=== PATIENT | female | born 1980 | race Caucasian/White ===

== ENCOUNTER 2017-10-20 10:40 | Emergency (ER) | payer OTHER ==
[2017-10-20] MEDS ORDERED: SODIUM CHLORIDE 0.9% 1,000 ML IV STA ×2 (11:10)
[2017-10-20] MEDS ORDERED: LORazepam 2 MG/ML INJ IV STA (11:10)
[2017-10-20] MEDS ORDERED: diphenhydrAMINE 50 MG/ML 1 ML VIAL IVP STA (11:10)
[2017-10-20] MEDS ORDERED: LEVOFLOXACIN 500MG-D5W PMX 500 MG in DEXTROSE/WATER 1 100ML.BAG IVPB STA (11:11)
[2017-10-20] MEDS ORDERED: AMPICILLIN-SULBACTAM 3 GM in SODIUM CHLORIDE 0.9% 100 ML IVPB STA (11:12)
[2017-10-20 12:12] LABS: Basophils % (A) 0 %; Eosinophils % (A) 1 %; HCT 35.4 % (34.0-46.0); HGB 11.9 gm/dL (11.4-16.0); Lymphocytes # (A) 0.7 k/uL (1.0-4.8); Lymphocytes % (A) 14 %; MCH 31.6 pg (25.0-35.0); MCHC 33.6 g/dL (31.0-37.0); MCV 94.2 fL (80.0-100.0); Monocytes # (A) 0.3 k/uL (0-1.0); Monocytes % (A) 5 %; Neutrophils # (A) 4.1 k/uL (1.3-7.7); Neutrophils % (A) 79 %; Platelet Count 186 k/uL (150-450); RBC 3.76 m/uL (3.80-5.40); RDW 13.5 % (11.5-15.5); WBC 5.2 k/uL (3.8-10.6)
[2017-10-20 12:17] LABS: Appearance,Urine Clear (Clear); Bacteria,Urine Rare /hpf; Bilirubin,Urine Negative (Negative); Blood,Urine Trace (Negative); Color,Urine Yellow; Glucose,Urine (UA) Negative (Negative); Ketones,Urine Trace (Negative); Leukocyte Esterase,Urine Small (Negative); Mucus,Urine Occasional /hpf; Nitrite,Urine Negative (Negative); PH, Urine 5.5 (5.0-8.0); Protein,Urine Trace (Negative); RBC,Urine 4 /hpf (0-5); Specific Gravity,Urine 1.023 (1.001-1.035); Squamous Epithelial Cell,Urine 3 /hpf (0-4); WBC,Urine 28 /hpf (0-5)
[2017-10-20 12:26] LABS: ALT 53 U/L (9-52); AST 50 U/L (14-36); Albumin 3.8 g/dL (3.5-5.0); Alkaline Phosphatase 54 U/L (38-126); Amylase <30 U/L (30-110); Anion Gap 12 mmol/L; Blood Urea Nitrogen 13 mg/dL (7-17); Calcium 8.8 mg/dL (8.4-10.2); Carbon Dioxide 26 mmol/L (22-30); Chloride 101 mmol/L (98-107); Glucose 93 mg/dL (74-99); Lipase 51 U/L (23-300); Magnesium 1.8 mg/dL (1.6-2.3); Potassium 3.7 mmol/L (3.5-5.1); Sodium 139 mmol/L (137-145); Total Bilirubin 0.7 mg/dL (0.2-1.3); Total Protein 6.9 g/dL (6.3-8.2)
--- NOTE | 2017-10-20 12:38 | ED ---
General Adult HPI - General Chief complaint: Recheck/Abnormal Lab/Rx Stated complaint: ABSCESSES Time Seen by Provider: 10/20/17 10:51 Source: patient, RN notes reviewed, old records reviewed Mode of arrival: ambulatory Limitations: no limitations - History of Present Illness Initial comments: This is a 37-year-old female to the ER for evaluation of multiple complaints today. Patient has history of drug abuse, history of recent relapse, patient does admit to past history of drug abuse, patient states she does have active hepatitis C. She states she is giving different abscesses and wounds on her face. She also states that she is very depressed that she recently lost her job secondary to physical appearance. Patient denies current drug or alcohol use - Related Data Previous Rx's Medication Instructions Recorded Sulfamethox-Tmp 800-160Mg [Bactrim 1 tab PO Q12HR #20 tab 10/20/17 DS 800-160 mg] Allergies Allergy/AdvReac Type Severity Reaction Status Date / Time No Known Allergies Allergy Verified 10/20/17 11:17 Review of Systems ROS Statement: Those systems with pertinent positive or pertinent negative responses have been documented in the HPI. ROS Other: All systems not noted in ROS Statement are negative. Past Medical History Past Medical History: Seizure Disorder Additional Past Medical History / Comment(s): Chronic Hepatitis C. Motion Sickness. Multiple Abscess with MRSA Rt Arm, Rt foot Left hand between thumb and first finger History of Any Multi-Drug Resistant Organisms: MRSA Date of last positivie culture/infection: Last MRSA Culture 01/19/14 MDRO Source:: 01/19/14 Right forearm, Scalp and Left hand Past Surgical History: Cholecystectomy Additional Past Surgical History / Comment(s): I & D of Lt armpit abscess 2011 Past Anesthesia/Blood Transfusion Reactions: Motion Sickness Past Psychological History: Anxiety, Bipolar, Depression Smoking Status: Current every day smoker Past Alcohol Use History: None Reported Past Drug Use History: Heroin, IV Drug Use - Past Family History Mother Additional Family Medical History / Comment(s): HIV General Exam Limitations: no limitations General appearance: alert, in no apparent distress Head exam: Present: atraumatic, normocephalic, normal inspection Eye exam: Present: normal appearance, PERRL, EOMI. Absent: scleral icterus, conjunctival injection, periorbital swelling ENT exam: Present: normal exam, mucous membranes moist Neck exam: Present: normal inspection. Absent: tenderness, meningismus, lymphadenopathy Respiratory exam: Present: normal lung sounds bilaterally. Absent: respiratory distress, wheezes, rales, rhonchi, stridor Cardiovascular Exam: Present: regular rate, normal rhythm, normal heart sounds. Absent: systolic murmur, diastolic murmur, rubs, gallop, clicks GI/Abdominal exam: Present: soft, normal bowel sounds. Absent: distended, tenderness, guarding, rebound, rigid Extremities exam: Present: normal inspection, full ROM, normal capillary refill. Absent: tenderness, pedal edema, joint swelling, calf tenderness Back exam: Present: normal inspection Neurological exam: Present: alert, oriented X3, CN II-XII intact Psychiatric exam: Present: normal affect, normal mood Skin exam: Present: warm, dry, intact, normal color. Absent: rash Course Vital Signs 10/20/17 10/20/17 10:43 13:07 Temperature 100.0 F H 98.8 F Pulse Rate 76 Respiratory 17 Rate Blood Pressure 117/77 O2 Sat by Pulse 100 Oximetry - Reevaluation(s) Reevaluation #1: 10/20/17 14:09 Patient is May medically clear for psychiatric evaluation regarding history of abuse, drug abuse, current depression and anxiety secondary to loss of job Reevaluation #2: 10/20/17 15:51 Patient was made medically clear for psychiatric evaluation, patient was seen and evaluated with history Medical Decision Making - Medical Decision Making 37 female ER for evaluation of abscesses, skin infection, hepatitis, patient urged to follow up for evaluation regarding her hepatitis. Patient was evaluated by psychiatry here in the ER, is okay for discharge home per psych, not homicidal or suicidal. Patient positive for multiple drugs in her system at this time. We will treat infections with antibiotics and patient can be discharged home - Lab Data Result diagrams: 10/20/17 12:00 10/20/17 12:00 Lab Results 10/20/17 10/20/17 10/20/17 Range/Units 12:00 12:00 12:00 WBC (3.8-10.6) k/uL RBC (3.80-5.40) m/uL Hgb (11.4-16.0) gm/dL Hct (34.0-46.0) % MCV (80.0-100.0) fL MCH (25.0-35.0) pg MCHC (31.0-37.0) g/dL RDW (11.5-15.5) % Plt Count (150-450) k/uL Neutrophils % % Lymphocytes % % Monocytes % % Eosinophils % % Basophils % % Neutrophils # (1.3-7.7) k/uL Lymphocytes # (1.0-4.8) k/uL Monocytes # (0-1.0) k/uL Eosinophils # (0-0.7) k/uL Basophils # (0-0.2) k/uL Sodium 139 (137-145) mmol/L Potassium 3.7 (3.5-5.1) mmol/L Chloride 101 (98-107) mmol/L Carbon Dioxide 26 (22-30) mmol/L Anion Gap 12 mmol/L BUN 13 (7-17) mg/dL Creatinine 0.83 (0.52-1.04) mg/dL Est GFR (MDRD) Af Amer >60 (>60 ml/min/1.73 sqM) Est GFR (MDRD) Non-Af >60 (>60 ml/min/1.73 sqM) Glucose 93 (74-99) mg/dL Calcium 8.8 (8.4-10.2) mg/dL Magnesium 1.8 (1.6-2.3) mg/dL Total Bilirubin 0.7 (0.2-1.3) mg/dL AST 50 H (14-36) U/L ALT 53 H (9-52) U/L Alkaline Phosphatase 54 (38-126) U/L Ammonia <9 (<30) umol/L Total Creatine Kinase 769 H (30-135) U/L CK-MB (CK-2) 2.3 (0.0-2.4) ng/mL CK-MB (CK-2) Rel Index 0.3 Total Protein 6.9 (6.3-8.2) g/dL Albumin 3.8 (3.5-5.0) g/dL Amylase <30 L (30-110) U/L Lipase 51 (23-300) U/L Urine Color Urine Appearance (Clear) Urine pH (5.0-8.0) Ur Specific [place] (1.001-1.035) Urine Protein (Negative) Urine Glucose (UA) (Negative) Urine Ketones (Negative) Urine Blood (Negative) Urine Nitrite (Negative) Urine Bilirubin (Negative) Urine Urobilinogen (<2.0) mg/dL Ur Leukocyte Esterase (Negative) Urine RBC (0-5) /hpf Urine WBC (0-5) /hpf Ur Squamous Epith Cells (0-4) /hpf Urine Bacteria (None) /hpf Urine Mucus (None) /hpf Urine HCG, Qual (Not Detectd) Urine Opiates Screen (NotDetected) Ur Oxycodone Screen (NotDetected) Urine Methadone Screen (NotDetected) Ur Propoxyphene Screen (NotDetected) Ur Barbiturates Screen (NotDetected) U Tricyclic Antidepress (NotDetected) Ur Phencyclidine Scrn (NotDetected) Ur Amphetamines Screen (NotDetected) U Methamphetamines Scrn (NotDetected) U Benzodiazepines Scrn (NotDetected) Urine Cocaine Screen (NotDetected) U Marijuana (THC) Screen (NotDetected) 10/20/17 10/20/17 10/20/17 Range/Units 12:00 12:00 12:00 WBC 5.2 (3.8-10.6) k/uL RBC 3.76 L (3.80-5.40) m/uL Hgb 11.9 (11.4-16.0) gm/dL Hct 35.4 (34.0-46.0) % MCV 94.2 (80.0-100.0) fL MCH 31.6 (25.0-35.0) pg MCHC 33.6 (31.0-37.0) g/dL RDW 13.5 (11.5-15.5) % Plt Count 186 (150-450) k/uL Neutrophils % 79 % Lymphocytes % 14 % Monocytes % 5 % Eosinophils % 1 % Basophils % 0 % Neutrophils # 4.1 (1.3-7.7) k/uL Lymphocytes # 0.7 L (1.0-4.8) k/uL Monocytes # 0.3 (0-1.0) k/uL Eosinophils # 0.0 (0-0.7) k/uL Basophils # 0.0 (0-0.2) k/uL Sodium (137-145) mmol/L Potassium (3.5-5.1) mmol/L Chloride (98-107) mmol/L Carbon Dioxide (22-30) mmol/L Anion Gap mmol/L BUN (7-17) mg/dL Creatinine (0.52-1.04) mg/dL Est GFR (MDRD) Af Amer (>60 ml/min/1.73 sqM) Est GFR (MDRD) Non-Af (>60 ml/min/1.73 sqM) Glucose (74-99) mg/dL Calcium (8.4-10.2) mg/dL Magnesium (1.6-2.3) mg/dL Total Bilirubin (0.2-1.3) mg/dL AST (14-36) U/L ALT (9-52) U/L Alkaline Phosphatase (38-126) U/L Ammonia (<30) umol/L Total Creatine Kinase (30-135) U/L CK-MB (CK-2) (0.0-2.4) ng/mL CK-MB (CK-2) Rel Index Total Protein (6.3-8.2) g/dL Albumin (3.5-5.0) g/dL Amylase (30-110) U/L Lipase (23-300) U/L Urine Color Yellow Urine Appearance Clear (Clear) Urine pH 5.5 (5.0-8.0) Ur Specific [place] 1.023 (1.001-1.035) Urine Protein Trace H (Negative) Urine Glucose (UA) Negative (Negative) Urine Ketones Trace H (Negative) Urine Blood Trace H (Negative) Urine Nitrite Negative (Negative) Urine Bilirubin Negative (Negative) Urine Urobilinogen 3.0 (<2.0) mg/dL Ur Leukocyte Esterase Small H (Negative) Urine RBC 4 (0-5) /hpf Urine WBC 28 H (0-5) /hpf Ur Squamous Epith Cells 3 (0-4) /hpf Urine Bacteria Rare H (None) /hpf Urine Mucus Occasional H (None) /hpf Urine HCG, Qual Not Detected (Not Detectd) Urine Opiates Screen (NotDetected) Ur Oxycodone Screen (NotDetected) Urine Methadone Screen (NotDetected) Ur Propoxyphene Screen (NotDetected) Ur Barbiturates Screen (NotDetected) U Tricyclic Antidepress (NotDetected) Ur Phencyclidine Scrn (NotDetected) Ur Amphetamines Screen (NotDetected) U Methamphetamines Scrn (NotDetected) U Benzodiazepines Scrn (NotDetected) Urine Cocaine Screen (NotDetected) U Marijuana (THC) Screen (NotDetected) 10/20/17 Range/Units 12:00 WBC (3.8-10.6) k/uL RBC (3.80-5.40) m/uL Hgb (11.4-16.0) gm/dL Hct (34.0-46.0) % MCV (80.0-100.0) fL MCH (25.0-35.0) pg MCHC (31.0-37.0) g/dL RDW (11.5-15.5) % Plt Count (150-450) k/uL Neutrophils % % Lymphocytes % % Monocytes % % Eosinophils % % Basophils % % Neutrophils # (1.3-7.7) k/uL Lymphocytes # (1.0-4.8) k/uL Monocytes # (0-1.0) k/uL Eosinophils # (0-0.7) k/uL Basophils # (0-0.2) k/uL Sodium (137-145) mmol/L Potassium (3.5-5.1) mmol/L Chloride (98-107) mmol/L Carbon Dioxide (22-30) mmol/L Anion Gap mmol/L BUN (7-17) mg/dL Creatinine (0.52-1.04) mg/dL Est GFR (MDRD) Af Amer (>60 ml/min/1.73 sqM) Est GFR (MDRD) Non-Af (>60 ml/min/1.73 sqM) Glucose (74-99) mg/dL Calcium (8.4-10.2) mg/dL Magnesium (1.6-2.3) mg/dL Total Bilirubin (0.2-1.3) mg/dL AST (14-36) U/L ALT (9-52) U/L Alkaline Phosphatase (38-126) U/L Ammonia (<30) umol/L Total Creatine Kinase (30-135) U/L CK-MB (CK-2) (0.0-2.4) ng/mL CK-MB (CK-2) Rel Index Total Protein (6.3-8.2) g/dL Albumin (3.5-5.0) g/dL Amylase (30-110) U/L Lipase (23-300) U/L Urine Color Urine Appearance (Clear) Urine pH (5.0-8.0) Ur Specific [place] (1.001-1.035) Urine Protein (Negative) Urine Glucose (UA) (Negative) Urine Ketones (Negative) Urine Blood (Negative) Urine Nitrite (Negative) Urine Bilirubin (Negative) Urine Urobilinogen (<2.0) mg/dL Ur Leukocyte Esterase (Negative) Urine RBC (0-5) /hpf Urine WBC (0-5) /hpf Ur Squamous Epith Cells (0-4) /hpf Urine Bacteria (None) /hpf Urine Mucus (None) /hpf Urine HCG, Qual (Not Detectd) Urine Opiates Screen Not Detected (NotDetected) Ur Oxycodone Screen Not Detected (NotDetected) Urine Methadone Screen Not Detected (NotDetected) Ur Propoxyphene Screen Not Detected (NotDetected) Ur Barbiturates Screen Not Detected (NotDetected) U Tricyclic Antidepress Not Detected (NotDetected) Ur Phencyclidine Scrn Not Detected (NotDetected) Ur Amphetamines Screen Detected H (NotDetected) U Methamphetamines Scrn Detected H (NotDetected) U Benzodiazepines Scrn Not Detected (NotDetected) Urine Cocaine Screen Detected H (NotDetected) U Marijuana (THC) Screen Detected H (NotDetected) Disposition Clinical Impression: Drug abuse, Polysubstance abuse, Hepatitis C, Skin sore Disposition: HOME SELF-CARE Condition: Good Instructions: Polysubstance Abuse (ED), Abscess (ED) Prescriptions: Sulfamethox-Tmp 800-160Mg [Bactrim DS 800-160 mg] 1 tab PO Q12HR #20 tab Referrals: Nonstaff,Physician [Primary Care Provider] - 1-2 days
[2017-10-20 12:42] LABS: Creatine Kinase MB 2.3 ng/mL (0.0-2.4)
[2017-10-20 14:05] LABS: Cocaine Screen,Urine Detected (NotDetected); Phencyclidine Screen,Urine Not Detected (NotDetected); Urn Cannabinoid Scrn Detected (NotDetected)
[2017-10-20 14:06] LABS: Amphetamine Screen,Urine Detected (NotDetected); Barbiturate Screen,Urine Not Detected (NotDetected); Benzodiazepines Screen,Urine Not Detected (NotDetected); Methadone Screen, Urine Not Detected (NotDetected); Opiate Screen,Urine Not Detected (NotDetected); Oxycodone Screen, Urine Not Detected (NotDetected); Tricyclic Antidepressant,Urine Not Detected (NotDetected)
[2017-10-20 15:57] VITALS: BP 125/68; PULSE 71; RESP 16; TEMP 101.2
[2017-10-20 19:55] LABS: Hepatitis A Antibody IgM Non-Reactive (Non-Reactive); Hepatitis B Core IgM Non-Reactive (Non-Reactive)
[2017-10-21 09:58] LABS: Chlamydia trachomatis rRNA Not detected (Not detected); Neisseria gonorrhoeae rRNA Not detected (Not detected)
== END 2017-10-20 16:12 | disposition home or self-care (01) ==
LOC: EC 10:40
DX: F19.10 Other psychoactive substance abuse, uncomplicated (principal); L98.9 Disorder of the skin and subcutaneous tissue, unspecified; B18.2 Chronic viral hepatitis C; F32.9 Major depressive disorder, single episode, unspecified; F17.200 Nicotine dependence, unspecified, uncomplicated
CPT/HCPCS: 36415; 80053; 80074; 87591; 87491; 82140; 82150; 82550; 82553; 83690; 83735; 85025; 81001; 81025; 80306; 87086; 87077; 87186; 99284; 96365; 96367; 96375 ×2; 96361 ×2; J2060; J1200; J1956; J0295

== ENCOUNTER 2021-03-31 16:06 | Emergency (ER) | payer OTHER ==
[2021-03-31 16:10] VITALS: TEMP 99.3
[2021-03-31] MEDS ORDERED: SODIUM CHLORIDE 0.9% 500 ML 500 ML IV STA (16:24)
--- NOTE | 2021-03-31 16:37 | ED ---
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 Patient also states continues to smoke she co mes in today complaining of an 8 week history of coughing. Patient states when she coughs she also occasionally has some chest pain it's very sharp in nature. Patient denies any fever chills. Patient denies any shortness of breath unless she is coughing. She denies any abdominal pain patient has nausea vomiting diarrhea. Patient denies any leg swelling or calf tenderness. - Related Data Home Medications Medication Instructions Recorded Confirmed Buprenorphine HCl/Naloxone HCl 1 film SUBLINGUAL DAILY 03/31/21 03/31/21 [Suboxone 4 mg-1 mg Sl Film] Buprenorphine HCl/Naloxone HCl 1 film SUBLINGUAL QAM 03/31/21 03/31/21 [Suboxone 8 mg-2 mg Sl Film] OXcarbazepine [Trileptal] 600 mg PO BID 03/31/21 03/31/21 Venlafaxine HCl ER [Effexor XR] 150 mg PO DAILY 03/31/21 03/31/21 buPROPion SR [Wellbutrin SR] 150 mg PO BID 03/31/21 03/31/21 chlorproMAZINE [Thorazine] 100 mg PO DAILY 03/31/21 03/31/21 Allergies Allergy/AdvReac Type Severity Reaction Status Date / Time No Known Allergies Allergy Verified 03/31/21 18:18 Review of Systems ROS Statement: Those systems with pertinent positive or pertinent negative responses have been documented in the HPI. ROS Other: All systems not noted in ROS Statement are negative. Past Medical History Past Medical History: Seizure Disorder Additional Past Medical History / Comment(s): Chronic Hepatitis C. Motion Sickness. Multiple Abscess with MRSA Rt Arm, Rt foot Left hand between thumb and first finger History of Any Multi-Drug Resistant Organisms: MRSA Date of last positivie culture/infection: Last MRSA Culture 01/19/14 MDRO Source:: 01/19/14 Right forearm, Scalp and Left hand Past Surgical History: Cholecystectomy Additional Past Surgical History / Comment(s): I & D of Lt armpit abscess 2012 Past Anesthesia/Blood Transfusion Reactions: Motion Sickness Past Psychological History: Anxiety, Bipolar, Depression Smoking Status: Vaper Past Alcohol Use History: None Reported Past Drug Use History: Heroin, IV Drug Use - Past Family History Mother Additional Family Medical History / Comment(s): HIV General Exam - General Exam Comments Initial Comments: GENERAL: Patient is well-developed and well-nourished. Patient is nontoxic and well- hydrated and is in mild distress. ENT: Neck is soft and supple. No significant lymphadenopathy is noted. Oropharynx is clear. Moist mucous membranes. Neck has full range of motion without eliciting any pain. EYES: The sclera were anicteric and conjunctiva were pink and moist. Extraocular movements were intact and pupils were equal round and reactive to light. Eyelids were unremarkable. PULMONARY: Unlabored respirations. Good breath sounds bilaterally. No audible rales rhonchi or wheezing was noted. CARDIOVASCULAR: There is a regular rate and rhythm without any murmurs gallops or rubs. ABDOMEN: Soft and nontender with normal bowel sounds. SKIN: Skin is clear with no lesions or rashes and otherwise unremarkable. NEUROLOGIC: Patient is alert and oriented x3. Cranial nerves II through XII are grossly intact. Motor and sensory are also intact. Normal speech, volume and content. Symmetrical smile. MUSCULOSKELETAL: Normal extremities with adequate strength and full range of motion. No lower extremity swelling or edema. No calf tenderness. LYMPHATICS: No significant lymphadenopathy is noted PSYCHIATRIC: Normal psychiatric evaluation. Limitations: no limitations Course Vital Signs 03/31/21 16:07 Temperature 99.3 F Pulse Rate 81 Respiratory 24 Rate Blood Pressure 128/56 O2 Sat by Pulse 100 Oximetry Medical Decision Making - Medical Decision Making EKG shows normal sinus rhythm at 77 bpm RI interval is 1:30 QRS is 88 QT i nterval 388 QTC is 439. Patient's EKG shows no ST segment elevation or depression. Chest x-ray shows no acute abnormality. I went by the room multiple times the patient had no cough that I could hear. Patient was at no time in any respiratory distress. - Lab Data Result diagrams: 03/31/21 16:42 03/31/21 16:42 Lab Results 03/31/21 03/31/21 03/31/21 Range/Units 16:42 16:42 16:42 WBC 5.3 (3.8-10.6) k/uL RBC 3.59 L (3.80-5.40) m/uL Hgb 12.1 (11.4-16.0) gm/dL Hct 34.0 (34.0-46.0) % MCV 94.7 (80.0-100.0) fL MCH 33.7 (25.0-35.0) pg MCHC 35.6 (31.0-37.0) g/dL RDW 12.0 (11.5-15.5) % Plt Count 204 (150-450) k/uL MPV 8.2 Neutrophils % 55 % Lymphocytes % 37 % Monocytes % 4 % Eosinophils % 2 % Basophils % 0 % Neutrophils # 2.9 (1.3-7.7) k/uL Lymphocytes # 1.9 (1.0-4.8) k/uL Monocytes # 0.2 (0-1.0) k/uL Eosinophils # 0.1 (0-0.7) k/uL Basophils # 0.0 (0-0.2) k/uL PT 9.8 (9.0-12.0) sec INR 0.9 (<1.2) APTT 21.9 L (22.0-30.0) sec Sodium 134 L (137-145) mmol/L Potassium 4.0 (3.5-5.1) mmol/L Chloride 103 (98-107) mmol/L Carbon Dioxide 26 (22-30) mmol/L Anion Gap 5 mmol/L BUN 9 (7-17) mg/dL Creatinine 0.62 (0.52-1.04) mg/dL Est GFR (CKD-EPI)AfAm >90 (>60 ml/min/1.73 sqM) Est GFR (CKD-EPI)NonAf >90 (>60 ml/min/1.73 sqM) Glucose 88 (74-99) mg/dL Calcium 8.7 (8.4-10.2) mg/dL Magnesium 1.7 (1.6-2.3) mg/dL Total Bilirubin 0.2 (0.2-1.3) mg/dL AST 53 H (14-36) U/L ALT 69 H (4-34) U/L Alkaline Phosphatase 51 (38-126) U/L Troponin I (0.000-0.034) ng/mL Total Protein 6.6 (6.3-8.2) g/dL Albumin 3.8 (3.5-5.0) g/dL Urine Opiates Screen (NotDetected) Ur Oxycodone Screen (NotDetected) Urine Methadone Screen (NotDetected) Ur Propoxyphene Screen (NotDetected) Ur Barbiturates Screen (NotDetected) U Tricyclic Antidepress (NotDetected) Ur Phencyclidine Scrn (NotDetected) Ur Amphetamines Screen (NotDetected) U Methamphetamines Scrn (NotDetected) U Benzodiazepines Scrn (NotDetected) Urine Cocaine Screen (NotDetected) U Marijuana (THC) Screen (NotDetected) 03/31/21 03/31/21 Range/Units 16:42 16:42 WBC (3.8-10.6) k/uL RBC (3.80-5.40) m/uL Hgb (11.4-16.0) gm/dL Hct (34.0-46.0) % MCV (80.0-100.0) fL MCH (25.0-35.0) pg MCHC (31.0-37.0) g/dL RDW (11.5-15.5) % Plt Count (150-450) k/uL MPV Neutrophils % % Lymphocytes % % Monocytes % % Eosinophils % % Basophils % % Neutrophils # (1.3-7.7) k/uL Lymphocytes # (1.0-4.8) k/uL Monocytes # (0-1.0) k/uL Eosinophils # (0-0.7) k/uL Basophils # (0-0.2) k/uL PT (9.0-12.0) sec INR (<1.2) APTT (22.0-30.0) sec Sodium (137-145) mmol/L Potassium (3.5-5.1) mmol/L Chloride (98-107) mmol/L Carbon Dioxide (22-30) mmol/L Anion Gap mmol/L BUN (7-17) mg/dL Creatinine (0.52-1.04) mg/dL Est GFR (CKD-EPI)AfAm (>60 ml/min/1.73 sqM) Est GFR (CKD-EPI)NonAf (>60 ml/min/1.73 sqM) Glucose (74-99) mg/dL Calcium (8.4-10.2) mg/dL Magnesium (1.6-2.3) mg/dL Total Bilirubin (0.2-1.3) mg/dL AST (14-36) U/L ALT (4-34) U/L Alkaline Phosphatase (38-126) U/L Troponin I <0.012 (0.000-0.034) ng/mL Total Protein (6.3-8.2) g/dL Albumin (3.5-5.0) g/dL Urine Opiates Screen Not Detected (NotDetected) Ur Oxycodone Screen Not Detected (NotDetected) Urine Methadone Screen Not Detected (NotDetected) Ur Propoxyphene Screen Not Detected (NotDetected) Ur Barbiturates Screen Not Detected (NotDetected) U Tricyclic Antidepress Not Detected (NotDetected) Ur Phencyclidine Scrn Not Detected (NotDetected) Ur Amphetamines Screen Not Detected (NotDetected) U Methamphetamines Scrn Not Detected (NotDetected) U Benzodiazepines Scrn Not Detected (NotDetected) Urine Cocaine Screen Not Detected (NotDetected) U Marijuana (THC) Screen Detected H (NotDetected) Disposition Clinical Impression: Chronic cough Disposition: HOME SELF-CARE Condition: Good Instructions (If sedation given, give patient instructions): Chronic Cough (ED) Is patient prescribed a controlled substance at d/c from ED?: No Referrals: Nonstaff,Physician [Primary Care Provider] - 1-2 days Time of Disposition: 18:37
[2021-03-31 16:58] LABS: Basophils % (A) 0 %; Eosinophils # (A) 0.1 k/uL (0-0.7); Eosinophils % (A) 2 %; HGB 12.1 gm/dL (11.4-16.0); Lymphocytes # (A) 1.9 k/uL (1.0-4.8); Lymphocytes % (A) 37 %; MCH 33.7 pg (25.0-35.0); MCHC 35.6 g/dL (31.0-37.0); MCV 94.7 fL (80.0-100.0); Mean Platelet Volume 8.2; Monocytes # (A) 0.2 k/uL (0-1.0); Monocytes % (A) 4 %; Neutrophils # (A) 2.9 k/uL (1.3-7.7); Neutrophils % (A) 55 %; Platelet Count 204 k/uL (150-450); RBC 3.59 m/uL (3.80-5.40); WBC 5.3 k/uL (3.8-10.6)
--- NOTE | 2021-03-31 17:05 | XR ---
EXAMINATION TYPE: XR chest 2V DATE OF EXAM: 03/31/2021 COMPARISON: 06/20/2011 HISTORY: Chest pain TECHNIQUE: FINDINGS: Heart and mediastinum are normal. Lungs are clear. Diaphragm is normal. Bony thorax appears normal. IMPRESSION: Normal chest. No change.
[2021-03-31 17:10] LABS: ALT 69 U/L (4-34); AST 53 U/L (14-36); African American GFR (CKD) >90 (>60 ml/min/1.73 sqM); Albumin 3.8 g/dL (3.5-5.0); Alkaline Phosphatase 51 U/L (38-126); Anion Gap 5 mmol/L; Blood Urea Nitrogen 9 mg/dL (7-17); Calcium 8.7 mg/dL (8.4-10.2); Carbon Dioxide 26 mmol/L (22-30); Chloride 103 mmol/L (98-107); Glucose 88 mg/dL (74-99); Magnesium 1.7 mg/dL (1.6-2.3); Non-African American GFR(CKD) >90 (>60 ml/min/1.73 sqM); Sodium 134 mmol/L (137-145); Total Bilirubin 0.2 mg/dL (0.2-1.3); Total Protein 6.6 g/dL (6.3-8.2)
[2021-03-31 17:32] LABS: INR 0.9 (<1.2); Partial Thromboplastin Time 21.9 sec (22.0-30.0); Prothrombin Time 9.8 sec (9.0-12.0)
[2021-03-31 18:01] LABS: Amphetamine Screen,Urine Not Detected (NotDetected); Barbiturate Screen,Urine Not Detected (NotDetected); Benzodiazepines Screen,Urine Not Detected (NotDetected); Cocaine Screen,Urine Not Detected (NotDetected); Methadone Screen, Urine Not Detected (NotDetected); Opiate Screen,Urine Not Detected (NotDetected); Oxycodone Screen, Urine Not Detected (NotDetected); Phencyclidine Screen,Urine Not Detected (NotDetected); Tricyclic Antidepressant,Urine Not Detected (NotDetected); Urn Cannabinoid Scrn Detected (NotDetected)
[2021-03-31 18:45] VITALS: BP 117/58; PULSE 70; RESP 22
== END 2021-03-31 18:53 | disposition home or self-care (01) ==
LOC: EC 16:06
DX: R05 Cough (principal); F41.9 Anxiety disorder, unspecified; G40.909 Epilepsy, unspecified, not intractable, without status epilepticus; F31.9 Bipolar disorder, unspecified; F17.290 Nicotine dependence, other tobacco product, uncomplicated; F11.90 Opioid use, unspecified, uncomplicated; Z79.899 Other long term (current) drug therapy
CPT/HCPCS: 36415; 71046; 80053; 80306; 83735; 84484; 85025; 85610; 85730; 93005; 99284

== ENCOUNTER 2021-07-24 16:06 | Emergency (ER) | payer OTHER ==
[2021-07-24 16:15] VITALS: TEMP 98
--- NOTE | 2021-07-24 16:56 | ED ---
General Adult HPI - General Chief complaint: Dental/Oral Stated complaint: fall/mouth injury/pain Time Seen by Provider: 07/24/21 16:25 Source: patient Mode of arrival: ambulatory Limitations: no limitations - History of Present Illness Initial comments: 40-year-old female presents to the emergency room for a chief complaint of dental injury. Patient states 2 days ago she fell while doing the gutters and hit her teeth on the ground. States he fractured 2 of her teeth. Patient states that she saw her dentist to told her to go to [facility]. Patient is from [place] that she went to the ER up by [place]. She then was told they could not help her so she came to this emergency room in hopes that she did not have to drive to [place].Patient has no other complaints at this time including shortness of breath, chest pain, abdominal pain, nausea or vomiting, headache, or visual changes. - Related Data Home Medications Medication Instructions Recorded Confirmed Buprenorphine HCl/Naloxone HCl 1 film SUBLINGUAL DAILY 03/31/21 03/31/21 [Suboxone 4 mg-1 mg Sl Film] Buprenorphine HCl/Naloxone HCl 1 film SUBLINGUAL QAM 03/31/21 03/31/21 [Suboxone 8 mg-2 mg Sl Film] OXcarbazepine [Trileptal] 600 mg PO BID 03/31/21 03/31/21 Venlafaxine HCl ER [Effexor XR] 150 mg PO DAILY 03/31/21 03/31/21 buPROPion SR [Wellbutrin SR] 150 mg PO BID 03/31/21 03/31/21 chlorproMAZINE [Thorazine] 100 mg PO DAILY 03/31/21 03/31/21 Previous Rx's Medication Instructions Recorded Penicillin V Potassium [Pen Vee K] 500 mg PO Q6H 10 Days #40 tablet 07/24/21 Allergies Allergy/AdvReac Type Severity Reaction Status Date / Time No Known Allergies Allergy Verified 07/24/21 16:15 Review of Systems ROS Statement: Those systems with pertinent positive or pertinent negative responses have been documented in the HPI. ROS Other: All systems not noted in ROS Statement are negative. Past Medical History Past Medical History: Seizure Disorder Additional Past Medical History / Comment(s): Chronic Hepatitis C. Motion Sickness. Multiple Abscess with MRSA Rt Arm, Rt foot Left hand between thumb and first finger History of Any Multi-Drug Resistant Organisms: MRSA Date of last positivie culture/infection: Last MRSA Culture 01/19/14 MDRO Source:: 01/19/14 Right forearm, Scalp and Left hand Past Surgical History: Cholecystectomy Additional Past Surgical History / Comment(s): I & D of Lt armpit abscess 2011 Past Anesthesia/Blood Transfusion Reactions: Motion Sickness Past Psychological History: Anxiety, Bipolar, Depression Smoking Status: Vaper Past Alcohol Use History: None Reported Past Drug Use History: Heroin, IV Drug Use - Past Family History Mother Additional Family Medical History / Comment(s): HIV General Exam Limitations: no limitations General appearance: alert, in no apparent distress Head exam: Absent: atraumatic (Old healing laceration on the left forehead) Eye exam: Present: normal appearance, PERRL, EOMI. Absent: scleral icterus, conjunctival injection ENT exam: Absent: normal oropharynx (Patient has class III fractures of teeth 7 and 8. Old healing wound of the upper lip.) Neck exam: Present: normal inspection, full ROM. Absent: tenderness Respiratory exam: Present: normal lung sounds bilaterally. Absent: respiratory distress, wheezes Cardiovascular Exam: Present: regular rate, normal rhythm, normal heart sounds GI/Abdominal exam: Present: soft, normal bowel sounds. Absent: distended, tenderness Course Vital Signs 07/24/21 16:11 Temperature 98.0 F Pulse Rate 68 Respiratory 20 Rate Blood Pressure 129/78 O2 Sat by Pulse 97 Oximetry Medical Decision Making - Medical Decision Making I did speak with Dr. Partida. Recommended putting her on penicillin and having her follow-up in the office tomorrow. Disposition Clinical Impression: Tooth fracture Disposition: HOME SELF-CARE Condition: Good Instructions (If sedation given, give patient instructions): Acute Dental Trauma (ED) Additional Instructions: Take Motrin and Tylenol as needed for pain. Take antibiotic as directed. Follow up with Dr. Partida by calling the office exactly at 8 AM tomorrow for an appointment. Let the office staff know that he wants to see you tomorrow. Prescriptions: Penicillin V Potassium [Pen Vee K] 500 mg PO Q6H 10 Days #40 tablet Is patient prescribed a controlled substance at d/c from ED?: No Referrals: Nonstaff,Physician [Primary Care Provider] - 1-2 days Amrik Partida DDS [STAFF PHYSICIAN] - 1-2 days Time of Disposition: 17:23
[2021-07-24] MEDS ORDERED: PENICILLIN VK 500MG STARTER 4 TAB BTL PO STA (17:22)
[2021-07-24] MEDS ORDERED: KETOROLAC 15 MG/ML 1 ML VIAL IM STA (17:22)
[2021-07-24] MEDS ORDERED: IBUPROFEN 600 MG STARTER PACK 4 TAB BTL PO STA (17:22)
[2021-07-24 17:34] VITALS: BP 117/78; PULSE 77; RESP 18
== END 2021-07-24 17:33 | disposition home or self-care (01) ==
LOC: EC 16:06
DX: S02.5XXA Fracture of tooth (traumatic), initial encounter for closed fracture (principal); G40.909 Epilepsy, unspecified, not intractable, without status epilepticus; F31.9 Bipolar disorder, unspecified; F41.9 Anxiety disorder, unspecified; F17.290 Nicotine dependence, other tobacco product, uncomplicated; Z79.899 Other long term (current) drug therapy; Z90.49 Acquired absence of other specified parts of digestive tract; W19.XXXA Unspecified fall, initial encounter
CPT/HCPCS: 96372; 99283; J1885

== ENCOUNTER 2022-07-07 00:17 | Inpatient (IN) | payer MEDICAID, OTHER ==
--- NOTE | 2022-07-07 01:16 | ED ---
Psych HPI - General Chief Complaint: Psychiatric Symptoms Stated Complaint: Mental Health Time Seen by Provider: 07/07/22 00:29 Source: patient, RN notes reviewed, old records reviewed Mode of arrival: ambulatory Limitations: no limitations - History of Present Illness Initial Comments: This is a 41-year-old female to the ER for evaluation. Denying alcohol abuse patient comes in for psychiatric evaluation with history of psychiatric illness MD Complaint: suicidal ideation, feels depressed -: unknown Associated Psychiatric Symptoms: depression, suicidal ideation History of same: Yes Quality: getting worse Improves With: medication Context: significant life stressor Associated Symptoms: denies other symptoms Treatments Prior to Arrival: placed on mental health hold If Self Harm: admits thoughts of self harm - Related Data Home Medications Medication Instructions Recorded Confirmed Buprenorphine HCl/Naloxone HCl 1 film SUBLINGUAL DAILY 03/31/21 03/31/21 [Suboxone 4 mg-1 mg Sl Film] Buprenorphine HCl/Naloxone HCl 1 film SUBLINGUAL QAM 03/31/21 03/31/21 [Suboxone 8 mg-2 mg Sl Film] OXcarbazepine [Trileptal] 600 mg PO BID 03/31/21 03/31/21 Venlafaxine HCl ER [Effexor XR] 150 mg PO DAILY 03/31/21 03/31/21 buPROPion SR [Wellbutrin SR] 150 mg PO BID 03/31/21 03/31/21 chlorproMAZINE [Thorazine] 100 mg PO DAILY 03/31/21 03/31/21 Previous Rx's Medication Instructions Recorded Penicillin V Potassium [Pen Vee K] 500 mg PO Q6H 10 Days #40 tablet 07/24/21 Allergies Allergy/AdvReac Type Severity Reaction Status Date / Time No Known Allergies Allergy Verified 07/07/22 00:22 Review of Systems ROS Statement: Those systems with pertinent positive or pertinent negative responses have been documented in the HPI. ROS Other: All systems not noted in ROS Statement are negative. Past Medical History Past Medical History: Seizure Disorder Additional Past Medical History / Comment(s): Chronic Hepatitis C. Motion Sickness. Multiple Abscess with MRSA Rt Arm, Rt foot Left hand between thumb and first finger History of Any Multi-Drug Resistant Organisms: MRSA Date of last positivie culture/infection: Last MRSA Culture 01/19/14 MDRO Source:: 01/19/14 Right forearm, Scalp and Left hand Past Surgical History: Cholecystectomy Additional Past Surgical History / Comment(s): I & D of Lt armpit abscess 2011 Past Anesthesia/Blood Transfusion Reactions: Motion Sickness Past Psychological History: Anxiety, Bipolar, Depression Smoking Status: Vaper Past Alcohol Use History: None Reported Past Drug Use History: Heroin, IV Drug Use - Past Family History Mother Additional Family Medical History / Comment(s): HIV General Exam Limitations: no limitations General appearance: alert, in no apparent distress Head exam: Present: atraumatic, normocephalic, normal inspection Eye exam: Present: normal appearance, PERRL, EOMI. Absent: scleral icterus, conjunctival injection, periorbital swelling ENT exam: Present: normal exam, mucous membranes moist Neck exam: Present: normal inspection. Absent: tenderness, meningismus, lymphadenopathy Respiratory exam: Present: normal lung sounds bilaterally. Absent: respiratory distress, wheezes, rales, rhonchi, stridor Cardiovascular Exam: Present: normal rhythm, tachycardia, normal heart sounds. Absent: systolic murmur, diastolic murmur, rubs, gallop, clicks GI/Abdominal exam: Present: soft, normal bowel sounds. Absent: distended, tenderness, guarding, rebound, rigid Extremities exam: Present: normal inspection, full ROM, normal capillary refill. Absent: tenderness, pedal edema, joint swelling, calf tenderness Back exam: Present: normal inspection Neurological exam: Present: alert, oriented X3, CN II-XII intact Psychiatric exam: Present: normal affect, normal mood Skin exam: Present: warm, dry, intact, normal color. Absent: rash Course Vital Signs 07/07/22 00:18 Temperature 98.3 F Pulse Rate 109 H Respiratory 16 Rate Blood Pressure 106/42 O2 Sat by Pulse 98 Oximetry - Reevaluation(s) Reevaluation #1: 07/07/22 05:04 medically clear for psychiatric evaluation Medical Decision Making - Medical Decision Making 41 female to the emergency department for evaluation, patient be admitted for psychiatric evaluation and treatment - Lab Data Lab Results 07/07/22 Range/Units 04:25 Coronavirus (PCR) Not Detected (Not Detectd) Disposition Clinical Impression: Acute anxiety, Depression, Suicidal ideation Disposition: TRANSFER TO PSYCH HOSP/UNIT Condition: Fair Is patient prescribed a controlled substance at d/c from ED?: No Referrals: Tank Sotomayor MD [REFERRING] - 1-2 days
[2022-07-07] MEDS ORDERED: HALOPERIDOL LACTATE 5 MG/ML 1 ML VIAL IM PRN (07:00)
[2022-07-07] MEDS ORDERED: MAGNESIUM HYDROXIDE 2,400 MG/10 ML CUP PO PRN (07:00)
[2022-07-07] MEDS ORDERED: MAG HYDROX/AL HYDROX/SIMETH 30 ML CUP PO PRN (07:00)
[2022-07-07] MEDS ORDERED: LORazepam 2 MG/ML INJ IM PRN (07:02)
[2022-07-07] MEDS ORDERED: haloperidoL 5 MG TAB PO PRN (07:04)
[2022-07-07] MEDS ORDERED: LORazepam 1 MG/0.5 ML VIAL IM PRN (07:22)
[2022-07-07 08:23] LABS: Appearance,Urine Cloudy (Clear); Bacteria,Urine Few /hpf; Bilirubin,Urine Negative (Negative); Blood,Urine Negative (Negative); Color,Urine Colorless; Glucose,Urine (UA) Negative (Negative); Ketones,Urine Negative (Negative); Leukocyte Esterase,Urine Negative (Negative); Nitrite,Urine Negative (Negative); PH, Urine 5.5 (5.0-8.0); Protein,Urine Negative (Negative); Specific Gravity,Urine 1.003 (1.001-1.035); Squamous Epithelial Cell,Urine 6 /hpf (0-4); Urobilinogen,Urine <2.0 mg/dL (<2.0); WBC,Urine 1 /hpf (0-5)
[2022-07-07] MEDS ORDERED: haloperidoL 5 MG TAB PO SCH (09:00)
[2022-07-07] MEDS ORDERED: LORazepam 1 MG TAB PO STA (10:00)
[2022-07-07] MEDS ORDERED: LORazepam 1 MG/0.5 ML VIAL IM STA (10:26)
[2022-07-07] MEDS: NICOTINE 14MG/24HR PATCH TRANSDERM SCH (12:31)
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
[2022-07-07 16:25] LABS: Amphetamine Screen,Urine Not Detected (NotDetected); Barbiturate Screen,Urine Not Detected (NotDetected); Benzodiazepines Screen,Urine Detected (NotDetected); Cocaine Screen,Urine Not Detected (NotDetected); Methadone Screen, Urine Not Detected (NotDetected); Opiate Screen,Urine Not Detected (NotDetected); Oxycodone Screen, Urine Not Detected (NotDetected); Phencyclidine Screen,Urine Not Detected (NotDetected); Tricyclic Antidepressant,Urine Not Detected (NotDetected); Urn Cannabinoid Scrn Not Detected (NotDetected)
--- NOTE | 2022-07-07 17:29 | P.PN ---
Progress Note - Text Progress Note Date: 07/07/22 Attempted to see the patient but she declined.
[2022-07-07] MEDS: LITHIUM CARBONATE 150 MG CAP PO SCH (20:57)
[2022-07-07] MEDS: risperiDONE 1 MG TAB PO SCH (20:57)
[2022-07-07 22:15] LABS: Urine Alcohol Negative (Negative); Urine Barbiturate Negative (Negative); Urine Cocaine Negative (Negative); Urine Methadone Negative (Negative); Urine Opiates Negative (Negative); Urine Phencyclidine Negative (Negative)
[2022-07-08] MEDS: LITHIUM CARBONATE 150 MG CAP PO SCH ×2 (09:04→20:23)
[2022-07-08] MEDS: NICOTINE 14MG/24HR PATCH TRANSDERM SCH (09:04)
[2022-07-08] MEDS: risperiDONE 1 MG TAB PO SCH (09:04)
[2022-07-08 09:06] VITALS: RESP 16
[2022-07-08] MEDS: LORazepam 1 MG TAB PO PRN ×2 (10:03→17:14)
--- NOTE | 2022-07-08 11:35 | P.PN ---
Progress Note - Text Progress Note Date: 07/08/22 Interval History: Patient was seen wandering the hallways and was directable and agreeable to speak with pattern chart writer in the office. Currently, the patient is reporting that she is feeling better. She continues to report that she does express elevated anxiety and did have a panic attack yesterday. However this was alleviated with the administration of Ativan. The patient reports that she continues to be increasingly stressed about numerous life stressors including her current enrollment in some college courses as well as her relationship and pending legal issues. She is requesting help to withdraw from college however acknowledges that she needs to take some time to make sure that she is making the right decision. She has been adherent with her medication and reports significant improvement in regards to her target symptoms of hypomania. She reports improvement in sleep and racing thoughts however would like the medication to be increased. She reports no auditory or visual hallucinations. Mental Status Exam: General Appearance: Patient appears to be stated age is alert, directable, and cooperative. Behavior: Patient continues to display elevated psychomotor activity however appears to be less anxious than yesterday. Speech: Patient's speech is fluent and nonpressured. Mood/Affect: Mood is "still nervous," affect is congruent and slightly anxious Suicidality/Homicidality: Patient denies having any suicidal or homicidal ideation intent or plan. Perceptions: Patient denies any visual hallucinations and denies any auditory hallucinations Though content/process: There is no evidence of any delusional thought content and thought process is linear and goal-directed. Memory and concentration: AOX3, grossly intact for the purposes of this session Judgment and insight: Improving mildly Assessment Bipolar 2 disorder, hypomanic episode Heroin use disorder, in remission Panic disorder Tobacco use disorder Cannabis use disorder Plan: -Patient continues to meet criteria for inpatient psychiatric admission for symptom stabilization and safety. Patient has signed adult voluntary form and medication consent and was placed in patient's chart. -Medications: Continue lithium 450 mg by mouth twice a day for mood stabilization Increase Risperdal to 1 mg by mouth every morning and 2 mg by mouth daily at bedtime for mood stabilization -When necessary Ativan and Haldol for agitation/aggression. -NRT - nicotine patch -SW on board for discharge planning. Encouraged the patient to participate in milieu. Vital Signs Temp 97.3 F L 07/08/22 09:06 Pulse 102 H 07/08/22 10:03 Resp 16 07/08/22 09:06 BP 126/62 07/08/22 10:03 Pulse Ox 99 07/08/22 09:06 FiO2 Intake & Output 07/07/22 07/08/22 07/08/22 18:59 06:59 18:59 Weight 57.294 kg Laboratory Results Urine Color Colorless 07/07/22 08:09 Urine Appearance Cloudy (Clear) H 07/07/22 08:09 Urine pH 5.5 (5.0-8.0) 07/07/22 08:09 Ur Specific [place] 1.003 (1.001-1.035) 07/07/22 08:09 Urine Protein Negative (Negative) 07/07/22 08:09 Urine Glucose (UA) Negative (Negative) 07/07/22 08:09 Urine Ketones Negative (Negative) 07/07/22 08:09 Urine Blood Negative (Negative) 07/07/22 08:09 Urine Nitrite Negative (Negative) 07/07/22 08:09 Urine Bilirubin Negative (Negative) 07/07/22 08:09 Urine Urobilinogen <2.0 mg/dL (<2.0) 07/07/22 08:09 Ur Leukocyte Esterase Negative (Negative) 07/07/22 08:09 Urine WBC 1 /hpf (0-5) 07/07/22 08:09 Ur Squamous Epith Cells 6 /hpf (0-4) H 07/07/22 08:09 Urine Bacteria Few /hpf (None) H 07/07/22 08:09 Urine HCG, Qual Not Detected (Not Detectd) 07/07/22 08:09 Urine Opiates Screen Not Detected (NotDetected) 07/07/22 16:13 Ur Oxycodone Screen Not Detected (NotDetected) 07/07/22 16:13 Urine Methadone Screen Not Detected (NotDetected) 07/07/22 16:13 Ur Propoxyphene Screen Not Detected (NotDetected) 07/07/22 16:13 Ur Barbiturates Screen Not Detected (NotDetected) 07/07/22 16:13 Urine Barbiturates Negative (Negative) 07/07/22 08:09 U Tricyclic Antidepress Not Detected (NotDetected) 07/07/22 16:13 Ur Phencyclidine Scrn Not Detected (NotDetected) 07/07/22 16:13 Ur Amphetamine Screen Negative (Negative) 07/07/22 08:09 Ur Amphetamines Screen Not Detected (NotDetected) 07/07/22 16:13 U Methamphetamines Scrn Not Detected (NotDetected) 07/07/22 16:13 U Benzodiazepines Scrn Detected (NotDetected) H 07/07/22 16:13 Urine Cocaine Screen Not Detected (NotDetected) 07/07/22 16:13 U Cannabinoids Screen Negative (Negative) 07/07/22 08:09 U Marijuana (THC) Screen Not Detected (NotDetected) 07/07/22 16:13 Urine Alcohol Negative (Negative) 07/07/22 08:09 Coronavirus (PCR) Not Detected (Not Detectd) 07/07/22 04:25 Allergies Allergy/AdvReac Type Severity Reaction Status Date / Time No Known Allergies Allergy Verified 07/07/22 00:22
[2022-07-08] MEDS: ACETAMINOPHEN TAB 325 MG TAB PO PRN (20:22)
[2022-07-08] MEDS: risperiDONE 2 MG TAB PO SCH (20:23)
[2022-07-08 21:44] LABS: ALT 21 U/L (4-34); AST 22 U/L (14-36); African American GFR (CKD) >90 (>60 ml/min/1.73 sqM); Alkaline Phosphatase 51 U/L (38-126); Anion Gap 12 mmol/L; Bilirubin, Delta 0.2 mg/dL (0.0-0.2); Bilirubin,Unconjugated 0.1 mg/dL (0.0-1.1); Blood Urea Nitrogen 13 mg/dL (7-17); Carbon Dioxide 20 mmol/L (22-30); Chloride 105 mmol/L (98-107); Glucose 115 mg/dL (74-99); Non-African American GFR(CKD) >90 (>60 ml/min/1.73 sqM); Potassium 3.8 mmol/L (3.5-5.1); Sodium 137 mmol/L (137-145); Total Bilirubin 0.3 mg/dL (0.2-1.3); Total Protein 6.6 g/dL (6.3-8.2)
[2022-07-08 22:11] LABS: Basophils % (A) 0 %; Eosinophils # (A) 0.1 k/uL (0-0.7); Eosinophils % (A) 1 %; HCT 37.2 % (34.0-46.0); HGB 12.7 gm/dL (11.4-16.0); Lymphocytes # (A) 2.2 k/uL (1.0-4.8); Lymphocytes % (A) 32 %; MCH 33.7 pg (25.0-35.0); MCHC 34.1 g/dL (31.0-37.0); MCV 98.9 fL (80.0-100.0); Mean Platelet Volume 10.9; Monocytes # (A) 0.3 k/uL (0-1.0); Monocytes % (A) 4 %; Neutrophils # (A) 4.2 k/uL (1.3-7.7); Neutrophils % (A) 60 %; Platelet Count 129 k/uL (150-450); RBC 3.76 m/uL (3.80-5.40); RDW 12.1 % (11.5-15.5)
[2022-07-09] MEDS: LORazepam 1 MG TAB PO PRN ×3 (00:33→17:27)
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
[2022-07-09] MEDS: risperiDONE 1 MG TAB PO SCH (08:46)
[2022-07-09] MEDS: NICOTINE 14MG/24HR PATCH TRANSDERM SCH (08:46)
[2022-07-09] MEDS: LITHIUM CARBONATE 150 MG CAP PO SCH ×2 (08:46→20:33)
[2022-07-09] MEDS: ACETAMINOPHEN TAB 325 MG TAB PO PRN ×3 (08:47→17:25)
[2022-07-09 15:23] LABS: LDL Cholesterol,Calculated 79.9 mg/dL (0.0-131.0)
[2022-07-09] MEDS: risperiDONE 2 MG TAB PO SCH (20:34)
[2022-07-10 07:00] VITALS: BP 103/58; PULSE 71; TEMP 98.4
[2022-07-10] MEDS: risperiDONE 1 MG TAB PO SCH (09:41)
[2022-07-10] MEDS: LITHIUM CARBONATE 150 MG CAP PO SCH (09:41)
[2022-07-10] MEDS: NICOTINE 14MG/24HR PATCH TRANSDERM SCH (09:41)
[2022-07-10] MEDS: LORazepam 1 MG TAB PO PRN (10:39)
[2022-07-10] MEDS: ACETAMINOPHEN TAB 325 MG TAB PO PRN (10:40)
[2022-07-10 14:38] LABS: C. trachomatis,PCR Negative (Neg,Equiv); Chlamydia trachomatis Source Urine; N. gonorrhoeae,PCR Negative (Neg,Equiv); Neisseria Source Urine
--- NOTE | 2022-07-11 09:05 | DS ---
DATE OF SERVICE: 07/10/2022 DISCHARGE SUMMARY ADMISSION AND DISCHARGE DIAGNOSES: 1. Bipolar 2 disorder, hypomanic episode. 2. Heroin use disorder, in remission. 3. Panic disorder. 4. Cannabis use disorder. 5. Seizure disorder. HISTORY OF PRESENTING ILLNESS: The patient is a 41-year-old female. She presented with hypomanic symptoms, where she was feeling increasingly stressed for the last 3 days prior to admission. She had racing thoughts, impulsive behavior, spending sprees, and mood liability. She also had increased suicide thinking without plan or intent. She acknowledged having overdosed a few months back in a suicide attempt. She has legal charges for assault on her partner, the two of them are now living apart. She was having depression symptoms with crying episodes, anhedonia, and poor motivation. She reported vague symptoms of auditory hallucinations. She has had diagnoses of bipolar disorder, PTSD, and depression. She has had multiple psychiatric hospitalizations with the last being in August 2020 at [facility]. She was admitted for further evaluation. PAST MEDICAL HISTORY: As per medical consultation. MENTAL STATUS EXAMINATION: The patient had significant psychomotor agitation. She was hyperverbal with word- finding difficulties. Her mood was anxious. Affect, congruent and nervous. She was denied any thoughts of harm. She was not indicating any thought disorder symptoms. She was oriented and alert. COURSE OF HOSPITALIZATION: The patient was admitted for comprehensive medical psychiatric and psychosocial evaluation. We will engage the patient in individual and group therapeutic activities. On admission, the patient was started on lithium 450 mg twice a day and Risperdal 1 mg twice a day. Early on in her hospital stay, the patient started reporting that she was feeling considerably better. She was still struggling some with anxiety and had a panic attack on the day after admission. She could acknowledge stress issues that she was struggling with including college courses that she is enrolled for as well as her pending legal issues. She contemplated withdrawing from a college at this point given the stress that she has been under. She noted her thoughts were clear and she was sleeping better at night. Dr. Bridges saw her yesterday and felt that she had made reasonable improvement and that she would be appropriate for discharge today. When I talked with the patient, her only concern was with her medications as she was uncertain about some of the basics of her medicine in terms of indication, potential side effects and dosing. I reviewed medication issues with the patient, I noted that with lithium, she needs to be followed for blood levels. Blood level had not been taking during the hospital stay, I did write for a level to be drawn over the next couple of days. She understands that blood level needs to be drawn 12 hours after her last dose. The results will be sent to [facility], where she is set up for followup. I reviewed signs and symptoms relating to lithium toxicity and advised on steps if she were to show signs of toxicity, namely to stop her lithium and get in touch with her physicians immediately. I reviewed concerns relating to Risperdal in regard to metabolic and movement disorder issues and the need to monitor for metabolic that she progresses with her medication. She was able to engage appropriately in discharge planning. CONDITION AT DISCHARGE: The patient was stable. Her mood was improved. Anxiety was less. She was not reporting any thoughts of harm to self or others. She tolerated her psychotropic medications. RECOMMENDATIONS AND FOLLOWUP: Discharge medications include: 1. [place] carbonate 450 mg twice a day. The patient understands that she can take all her lithium once a day at bedtime. 2. She is on Risperdal 1 mg in the morning and 2 mg at bedtime. 3. Ativan 1 mg 3 times a day as needed. She has followup with [facility] with an intake on 07/14/2022 at 12:45 p.m. LEXI / CLARE: [id number] / MTDD
--- NOTE | 2022-07-14 09:16 | P.PN ---
Progress Note - Text Progress Note Date: 07/09/22 Interval History: Patient was seen wandering the hallways and was directable and agreeable to speak with group underwriter in the office. Currently, the patient is not reporting any suicidal or homicidal ideation, intention, and/or plan. She reports no auditory or visual hallucinations. She denies any paranoid delusions. The patient does express she is feeling little bit better however continues to report elevated anxiety and concerns regarding her current living situation. However, the patient remains future and goal oriented. Mental Status Exam: General Appearance: Patient appears to be stated age is alert, directable, and cooperative. Behavior: Patient continues to display elevated psychomotor activity however appears to be less anxious than yesterday. Speech: Patient's speech is fluent and nonpressured. Mood/Affect: Mood is "anxious," affect is congruent and slightly expansive. Suicidality/Homicidality: Patient denies having any suicidal or homicidal ideation intent or plan. Perceptions: Patient denies any visual hallucinations and denies any auditory hallucinations Though content/process: There is no evidence of any delusional thought content and thought process is linear and goal-directed. Memory and concentration: AOX3, grossly intact for the purposes of this session Judgment and insight: Improving mildly Assessment Bipolar 2 disorder, hypomanic episode Heroin use disorder, in remission Panic disorder Tobacco use disorder Cannabis use disorder Plan: -Patient continues to meet criteria for inpatient psychiatric admission for symptom stabilization and safety. Patient has signed adult voluntary form and medication consent and was placed in patient's chart. -Medications: Continue lithium 450 mg by mouth twice a day for mood stabilization Continue Risperdal 1 mg by mouth every morning and 2 mg by mouth daily at bedtime for mood stabilization -When necessary Ativan and Haldol for agitation/aggression. -NRT - nicotine patch -SW on board for discharge planning. Encouraged the patient to participate in milieu.
== END 2022-07-10 12:05 | disposition home or self-care (01) | DRG 885 ==
LOC: EC 00:17 → 3MHU 06:19
PROVIDERS: ADMIT Psychiatry & Neurology Psychiatry; ATTEND Psychiatry & Neurology Psychiatry
DX: F31.81 Bipolar II disorder (principal); R45.851 Suicidal ideations; G40.909 Epilepsy, unspecified, not intractable, without status epilepticus; F11.11 Opioid abuse, in remission; B18.2 Chronic viral hepatitis C; Z20.822 Contact with and (suspected) exposure to COVID-19; F41.0 Panic disorder [episodic paroxysmal anxiety]; F43.10 Post-traumatic stress disorder, unspecified; F12.10 Cannabis abuse, uncomplicated; N89.8 Other specified noninflammatory disorders of vagina; F17.210 Nicotine dependence, cigarettes, uncomplicated; Z71.6 Tobacco abuse counseling; Z79.899 Other long term (current) drug therapy; Z86.14 Personal history of Methicillin resistant Staphylococcus aureus infection; Z91.51 Personal history of suicidal behavior; Z59.00 Homelessness unspecified; Z56.0 Unemployment, unspecified; Z71.51 Drug abuse counseling and surveillance of drug abuser
CPT/HCPCS: 80053; 80061; 80306; 81001; 81025; 82075; 82248; 83036; 84439; 84443; 84480; 85025; 87491; 87591; 87635; 99285

== ENCOUNTER 2023-12-30 18:37 | Emergency (ER) | payer OTHER ==
[2023-12-30 18:44] VITALS: BP 149/79; PULSE 98; RESP 22; TEMP 98.8
--- NOTE | 2023-12-30 19:38 | ED ---
Abdominal Pain HPI - General Chief Complaint: Abdominal Pain Stated Complaint: Abd pain, back pain Time Seen by Provider: 12/30/23 18:55 Source: patient Mode of arrival: ambulatory Limitations: no limitations - History of Present Illness Initial Comments: 43-year-old female with a past surgical history significant for cholecystectomy presents to the ED with a chief complaint of abdominal pain. Patient reports for the past 4 to 5 days has had pain in her right lower abdomen radiating to her right flank with some associated nausea, no vomiting. Patient also notes that she has had some difficulties with bowel movements however reports her last "regular" bowel movement was yesterday which she reports was smaller than usual. Denies blood in the stool or diarrhea. Denies hematuria, frequency, urgency, pain with urination. Denies fever or chills. Denies chest pain or shortness of breath. No other complaints at this time. - Related Data Previous Rx's Medication Instructions Recorded LORazepam [Ativan] 1 mg PO TID PRN 3 Days tab 07/09/22 [place] Carbonate 450 mg PO BID 30 Days cap 07/09/22 risperiDONE [RisperDAL] 1 mg PO DAILY 30 Days tab 07/09/22 risperiDONE [RisperDAL] 2 mg PO HS 30 Days tab 07/09/22 Allergies Allergy/AdvReac Type Severity Reaction Status Date / Time No Known Allergies Allergy Verified 12/30/23 18:44 Review of Systems ROS Statement: Those systems with pertinent positive or pertinent negative responses have been documented in the HPI. ROS Other: All systems not noted in ROS Statement are negative. Past Medical History Past Medical History: Seizure Disorder Additional Past Medical History / Comment(s): Chronic Hepatitis C. Motion Sickness. Multiple Abscess with MRSA Rt Arm, Rt foot Left hand between thumb and first finger History of Any Multi-Drug Resistant Organisms: MRSA Date of last positivie culture/infection: Last MRSA Culture 01/19/14 MDRO Source:: 01/19/14 Right forearm, Scalp and Left hand Past Surgical History: Cholecystectomy Additional Past Surgical History / Comment(s): I & D of Lt armpit abscess 2011 Past Anesthesia/Blood Transfusion Reactions: Motion Sickness Past Psychological History: Anxiety, Bipolar, Depression Smoking Status: Current every day smoker, Vaper Past Alcohol Use History: None Reported Past Drug Use History: Heroin, IV Drug Use - Past Family History Mother Additional Family Medical History / Comment(s): HIV General Exam Limitations: no limitations General appearance: alert, in no apparent distress Eye exam: Present: normal appearance ENT exam: Present: mucous membranes moist Neck exam: Present: normal inspection Respiratory exam: Present: normal lung sounds bilaterally Cardiovascular Exam: Present: regular rate GI/Abdominal exam: Present: soft, normal bowel sounds, other (No significant CVA tenderness to percussion bilaterally.). Absent: distended, tenderness, guarding, rebound, rigid Neurological exam: Present: alert, oriented X3 Skin exam: Present: warm, dry Course Vital Signs 12/30/23 18:42 Temperature 98.8 F Pulse Rate 98 Respiratory 22 Rate Blood Pressure 149/79 O2 Sat by Pulse 99 Oximetry Medical Decision Making - Medical Decision Making Was pt. sent in by a medical professional or institution (MIAN Hassan, MAC ARTIST, urgent care, hospital, or group home...) When possible be specific @ -No Did you speak to anyone other than the patient for history (EMS, parent, family, police, friend...)? What history was obtained from this source @ -No Did you review nursing and triage notes (agree or disagree)? Why? @ -I reviewed and agree with nursing and triage notes Were old charts reviewed (outside hosp., previous admission, EMS record, old EKG, old radiological studies, urgent care reports/EKG's, group home records)? Report findings @ -No old charts were reviewed Differential Diagnosis (chest pain, altered mental status, abdominal pain women, abdominal pain men, vaginal bleeding, weakness, fever, dyspnea, syncope, headache, dizziness, GI bleed, back pain, seizure, CVA, palpatations, mental health, musculoskeletal)? @ -Differential Abdominal Pain Women: Appendicitis, Cholecystitis, diverticulosis, ischemic bowel, pancreatitis, hepatitis, UTI, gastroenteritis, AAA, incarcerated hernia, bowel obstruction, constipation, inflammatory bowel, hepatitis, peptic ulcer disease, splenic infarction, perforated viscus, vulvitis, ovarian torsion, PID, kidney stone, placenta abruption, this is not meant to be an all-inclusive list EKG interpreted by me (3pts min.). @ -As above X-rays interpreted by me (1pt min.). @ -None done CT interpreted by me (1pt min.). @ -CT abdomen pelvis interpreted me which revealed no evidence of acute finding. U/S interpreted by me (1pt. min.). @ -None done What testing was considered but not performed or refused? (CT, X-rays, U/S, labs)? Why? @ -None What meds were considered but not given or refused? Why? @ -None Did you discuss the management of the patient with other professionals (professionals i.e. , PA, MAC ARTIST, lab, RT, psych nurse, oncology social worker, supervisor electronic testing, teacher, environmental compliance officer, case management coordinator)? Give summary @ -No Was smoking cessation discussed for >3mins.? @ -No Was critical care preformed (if so, how long)? @ -No Were there social determinants of health that impacted care today? How? (Homelessness, low income, unemployed, alcoholism, drug addiction, transportation, low edu. Level, literacy, decrease access to med. care, fpc, rehab)? @ -No Was there de-escalation of care discussed even if they declined (Discuss DNR or withdrawal of care, Hospice)? DNR status @ -No What co-morbidities impacted this encounter? (DM, HTN, Smoking, COPD, CAD, Cancer, CVA, ARF, Chemo, Hep., AIDS, mental health diagnosis, sleep apnea, morbid obesity)? @ -None Was patient admitted / discharged? Hospital course, mention meds given and route, prescriptions, significant lab abnormalities, going to OR and other pertinent info. @ -Discharge 43-year-old female presenting to the ED with complaints of right lower abdominal pain for the past 4 to 5 days radiating to her flank. CT abdomen pelvis reviewed which revealed no evidence of acute finding. Laboratory studies reviewed. Labs including CBC, CMP, UA, amylase, lipase, serology panel unremarkable. Patient discharged home in stable condition with instructions to follow-up with her PCP. Discussed return precautions with patient who verbalized agreement. Patient provided a work note as requested. Undiagnosed new problem with uncertain prognosis? @ -No Drug Therapy requiring intensive monitoring for toxicity (Heparin, Nitro, Insulin, Cardizem)? @ -No Were any procedures done? @ -No Diagnosis/symptom? @ -Abdominal pain Acute, or Chronic, or Acute on Chronic? @ -Acute Uncomplicated (without systemic symptoms) or Complicated (systemic symptoms)? @ -Uncomplicated Side effects of treatment? @ -No Exacerbation, Progression, or Severe Exacerbation? @ -No Poses a threat to life or bodily function? How? (Chest pain, [place], [place], pneumonia, PE, COPD, DKA, ARF, appy, cholecystitis, CVA, Diverticulitis, Homicidal, Suicidal, threat to staff... and all critical care pts) @ -No - Lab Data Result diagrams: 12/30/23 21:45 12/30/23 21:45 Lab Results 12/30/23 12/30/23 12/30/23 Range/Units 21:45 21:45 21:45 WBC 6.5 (3.8-10.6) k/uL RBC 4.03 (3.80-5.40) m/uL Hgb 12.8 (11.4-16.0) gm/dL Hct 38.6 (34.0-46.0) % MCV 95.9 (80.0-100.0) fL MCH 31.8 (25.0-35.0) pg MCHC 33.2 (31.0-37.0) g/dL RDW 12.3 (11.5-15.5) % Plt Count 203 (150-450) k/uL MPV 8.6 Neutrophils % 50 % Lymphocytes % 41 % Monocytes % 5 % Eosinophils % 2 % Basophils % 0 % Neutrophils # 3.3 (1.3-7.7) k/uL Lymphocytes # 2.7 (1.0-4.8) k/uL Monocytes # 0.3 (0-1.0) k/uL Eosinophils # 0.1 (0-0.7) k/uL Basophils # 0.0 (0-0.2) k/uL Sodium (137-145) mmol/L Potassium (3.5-5.1) mmol/L Chloride (98-107) mmol/L Carbon Dioxide (22-30) mmol/L Anion Gap mmol/L BUN (7-17) mg/dL Creatinine (0.52-1.04) mg/dL Est GFR (CKD-EPI)AfAm (>60 ml/min/1.73 sqM) Est GFR (CKD-EPI)NonAf (>60 ml/min/1.73 sqM) Glucose (74-99) mg/dL Calcium (8.4-10.2) mg/dL Total Bilirubin (0.2-1.3) mg/dL AST (14-36) U/L ALT (4-34) U/L Alkaline Phosphatase (38-126) U/L Total Protein (6.3-8.2) g/dL Albumin (3.5-5.0) g/dL Amylase (30-110) U/L Lipase (23-300) U/L Urine Color Colorless Urine Appearance Clear (Clear) Urine pH 7.0 (5.0-8.0) Ur Specific Brush 1.010 (1.001-1.035) Urine Protein Negative (Negative) Urine Glucose (UA) Negative (Negative) Urine Ketones Negative (Negative) Urine Blood Negative (Negative) Urine Nitrite Negative (Negative) Urine Bilirubin Negative (Negative) Urine Urobilinogen <2.0 (<2.0) mg/dL Ur Leukocyte Esterase Negative (Negative) Urine HCG, Qual Not Detected (Not Detectd) Influenza Type A (PCR) (Not Detectd) Influenza Type B (PCR) (Not Detectd) RSV (PCR) (Not Detectd) SARS-CoV-2 (PCR) (Not Detectd) 12/30/23 12/30/23 Range/Units 21:45 21:45 WBC (3.8-10.6) k/uL RBC (3.80-5.40) m/uL Hgb (11.4-16.0) gm/dL Hct (34.0-46.0) % MCV (80.0-100.0) fL MCH (25.0-35.0) pg MCHC (31.0-37.0) g/dL RDW (11.5-15.5) % Plt Count (150-450) k/uL MPV Neutrophils % % Lymphocytes % % Monocytes % % Eosinophils % % Basophils % % Neutrophils # (1.3-7.7) k/uL Lymphocytes # (1.0-4.8) k/uL Monocytes # (0-1.0) k/uL Eosinophils # (0-0.7) k/uL Basophils # (0-0.2) k/uL Sodium 139 (137-145) mmol/L Potassium 3.9 (3.5-5.1) mmol/L Chloride 108 H (98-107) mmol/L Carbon Dioxide 27 (22-30) mmol/L Anion Gap 4 mmol/L BUN 8 (7-17) mg/dL Creatinine 0.61 (0.52-1.04) mg/dL Est GFR (CKD-EPI)AfAm >90 (>60 ml/min/1.73 sqM) Est GFR (CKD-EPI)NonAf >90 (>60 ml/min/1.73 sqM) Glucose 61 L (74-99) mg/dL Calcium 9.3 (8.4-10.2) mg/dL Total Bilirubin 0.3 (0.2-1.3) mg/dL AST 18 (14-36) U/L ALT 13 (4-34) U/L Alkaline Phosphatase 64 (38-126) U/L Total Protein 7.0 (6.3-8.2) g/dL Albumin 4.1 (3.5-5.0) g/dL Amylase 52 (30-110) U/L Lipase 29 (23-300) U/L Urine Color Urine Appearance (Clear) Urine pH (5.0-8.0) Ur Specific Brush (1.001-1.035) Urine Protein (Negative) Urine Glucose (UA) (Negative) Urine Ketones (Negative) Urine Blood (Negative) Urine Nitrite (Negative) Urine Bilirubin (Negative) Urine Urobilinogen (<2.0) mg/dL Ur Leukocyte Esterase (Negative) Urine HCG, Qual (Not Detectd) Influenza Type A (PCR) Not Detected (Not Detectd) Influenza Type B (PCR) Not Detected (Not Detectd) RSV (PCR) Not Detected (Not Detectd) SARS-CoV-2 (PCR) Not Detected (Not Detectd) Disposition Clinical Impression: Abdominal pain Disposition: HOME SELF-CARE Condition: Good Instructions (If sedation given, give patient instructions): Abdominal Pain (ED) Additional Instructions: Please return to the Emergency Department if symptoms worsen or any other concerns. Please follow-up with your PCP. Is patient prescribed a controlled substance at d/c from ED?: No Referrals: Tank Sotomayor MD [Primary Care Provider] - 1-2 days Time of Disposition: 00:00
[2023-12-30] MEDS: KETOROLAC 15 MG/ML 1 ML VIAL IVP STA (21:49)
[2023-12-30] MEDS: SODIUM CHLORIDE 0.9% 1,000 ML IV STA (21:50)
[2023-12-30] MEDS: ONDANSETRON 4 MG/2 ML VIAL IVP STA (21:50)
[2023-12-30] MEDS: ACETAMINOPHEN TAB 500 MG TAB PO STA (21:50)
[2023-12-30 21:53] LABS: Basophils % (A) 0 %; Eosinophils # (A) 0.1 k/uL (0-0.7); Eosinophils % (A) 2 %; HCT 38.6 % (34.0-46.0); HGB 12.8 gm/dL (11.4-16.0); Lymphocytes # (A) 2.7 k/uL (1.0-4.8); Lymphocytes % (A) 41 %; MCH 31.8 pg (25.0-35.0); MCHC 33.2 g/dL (31.0-37.0); MCV 95.9 fL (80.0-100.0); Mean Platelet Volume 8.6; Monocytes # (A) 0.3 k/uL (0-1.0); Monocytes % (A) 5 %; Neutrophils # (A) 3.3 k/uL (1.3-7.7); Neutrophils % (A) 50 %; Platelet Count 203 k/uL (150-450); RBC 4.03 m/uL (3.80-5.40); RDW 12.3 % (11.5-15.5); WBC 6.5 k/uL (3.8-10.6)
[2023-12-30 22:01] LABS: Appearance,Urine Clear (Clear); Bilirubin,Urine Negative (Negative); Blood,Urine Negative (Negative); Color,Urine Colorless; Glucose,Urine (UA) Negative (Negative); Ketones,Urine Negative (Negative); Leukocyte Esterase,Urine Negative (Negative); Nitrite,Urine Negative (Negative); Protein,Urine Negative (Negative); Urobilinogen,Urine <2.0 mg/dL (<2.0)
[2023-12-30 22:08] LABS: ALT 13 U/L (4-34); AST 18 U/L (14-36); African American GFR (CKD) >90 (>60 ml/min/1.73 sqM); Albumin 4.1 g/dL (3.5-5.0); Alkaline Phosphatase 64 U/L (38-126); Amylase 52 U/L (30-110); Anion Gap 4 mmol/L; Blood Urea Nitrogen 8 mg/dL (7-17); Calcium 9.3 mg/dL (8.4-10.2); Carbon Dioxide 27 mmol/L (22-30); Chloride 108 mmol/L (98-107); Glucose 61 mg/dL (74-99); Lipase 29 U/L (23-300); Non-African American GFR(CKD) >90 (>60 ml/min/1.73 sqM); Potassium 3.9 mmol/L (3.5-5.1); Sodium 139 mmol/L (137-145); Total Bilirubin 0.3 mg/dL (0.2-1.3)
[2023-12-30] MEDS: MORPHINE SULFATE 2 MG/ML SYRINGE IVP STA (22:56)
--- NOTE | 2023-12-30 23:47 | CT ---
EXAM: CT Abdomen and Pelvis Without Intravenous Contrast CLINICAL HISTORY: ITS.REASON CT Reason: rlq/flank pain r/o stone TECHNIQUE: Axial computed tomography images of the abdomen and pelvis without intravenous contrast. CTDI is 7.1 mGy and DLP is 367.5 mGy-cm. This CT exam was performed using one or more of the following dose reduction techniques: automated exposure control, adjustment of the mA and/or kV according to patient size, and/or use of iterative reconstruction technique. COMPARISON: No relevant prior studies available. FINDINGS: ABDOMEN: Liver: Unremarkable. Gallbladder and bile ducts: Status post cholecystectomy. Pneumobilia from a previous sphincterotomy. No biliary dilatation. Pancreas: Unremarkable. Spleen: Unremarkable. Adrenals: Unremarkable. Kidneys and ureters: No ureteral stone or obstructive uropathy. Stomach and bowel: Unremarkable. PELVIS: Appendix: Normal appendix. Bladder: Unremarkable. Reproductive: Unremarkable as visualized. ABDOMEN and PELVIS: Intraperitoneal space: Unremarkable. No free air. No significant fluid collection. Bones/joints: No acute fracture. Soft tissues: Ventral epigastric fat-containing hernia. Vasculature: Unremarkable. Lymph nodes: Unremarkable. IMPRESSION: 1. No ureteral stone or obstructive uropathy. 2. Normal appendix. 3. Ventral epigastric fat-containing hernia.
== END 2023-12-31 00:11 | disposition home or self-care (01) ==
LOC: EC 18:37
DX: K43.9 Ventral hernia without obstruction or gangrene (principal); F17.290 Nicotine dependence, other tobacco product, uncomplicated; F15.90 Other stimulant use, unspecified, uncomplicated
CPT/HCPCS: 36415; 80053; 82150; 83690; 85025; 81003; 81025; 87636; 74176; 99284; 96374; 96375 ×2; 96361; J2405; J2270; J1885